=== PATIENT | male | born 1950 | race Caucasian/White ===

== ENCOUNTER 2016-05-26 09:02 | Outpatient (RCR) | payer MEDICARE, MEDICAID ==
[2014-05-07 16:05] VITALS: BP 126/62
[~2016-05-26 09:02] MED LIST: AMARYL1 MG PO; AMARYL4 MG PO; COZAAR100 MG PO; FORTAMET500 MG PO; IBUPROFEN600 MG PO; LEVEMIR100 U/M1 SC; TAMIFLU75 MG PO; TUSS PO; VIAGRA50 MG PO
== END 2016-06-23 11:38 | disposition home or self-care (01) ==
LOC: PT 09:02
DX: M79.604 Pain in right leg (principal)

== ENCOUNTER 2017-05-24 07:48 | Emergency (ER) | payer MEDICARE, MEDICAID ==
[~2017-05-24] VITALS: Ht 185.4 cm; Wt 81.8 kg
[2017-05-24] MEDS ORDERED: JANUVIA 100MG100 MG (08:19)
[2017-05-24 08:47] LABS: EOS # 0.2 (0.04-0.40); EOS % 4.7 % (0.0-4.0); HEMATOCRIT 40.1 % (42.0-52.0); HEMOGLOBIN 13.9 g/dL (13.5-18.0); LYMPH# 0.9 (1.50-4.00); MEAN CORPUSCULAR HGB CONC 35 g/dL (33-37); MEAN PLATELET VOLUME 10.5 fl (7.4-10.4); MONO # 0.4 (0.20-0.80); NEU # 3.2 (1.40-6.50); PLATELET COUNT 137 K/mm3 (130-400); RED BLOOD COUNT 3.63 M/mm3 (4.20-5.60); RED CELL DISTRIBUTION WIDTH 12.4 % (11.5-14.5); WHITE BLOOD COUNT 4.7 K/mm3 (4.8-10.8)
[2017-05-24 08:50] LABS: MEAN CELL VOLUME 111 fl (78-100); MEAN CORPUSCULAR HEMOGLOBIN 38 pg (27-31)
[2017-05-24 08:53] LABS: ALBUMIN 3.8 g/dL (3.5-5.0); BUN/CREATININE RATIO 15.1 (6.0-26.0); CALCIUM 8.5 mg/dL (8.4-10.2); POTASSIUM 4.2 mmol/L (3.6-5.0); TOTAL BILIRUBIN 0.8 mg/dL (0.2-1.3); TOTAL PROTEIN 7.7 g/dL (6.3-8.2)
[2017-05-24 09:10] LABS: URINE APPEARANCE HAZY; URINE BILIRUBIN NEGATIVE (NEGATIVE); URINE BLOOD 250 ery/uL (NEGATIVE); URINE COLOR DARK YELLOW; URINE GLUCOSE 50 mg/dL mg/dL (NEGATIVE); URINE KETONE 1+ (NEGATIVE); URINE LEUKOCYTE ESTERASE NEGATIVE (NEGATIVE); URINE MUCUS PRESENT (NOT PRESENT); URINE NITRATE NEGATIVE (NEGATIVE); URINE PROTEIN(semi-quant) TRACE mg/dL (NEGATIVE); URINE UROBILINOGEN NORMAL (NORMAL)
[2017-05-24] MEDS ORDERED: DELTASONE20 M1 PO (09:50)
[2017-05-24] MEDS ORDERED: ZITHROMAX Z PA250 MG PO (09:50)
[2017-05-24 10:23] VITALS: BP 152/78
== END 2017-05-24 09:58 | disposition home or self-care (01) ==
LOC: ED 07:48
PROVIDERS: Nurse Practitioner
DX: J40 Bronchitis, not specified as acute or chronic (principal); I10 Essential (primary) hypertension; E11.65 Type 2 diabetes mellitus with hyperglycemia; Z88.0 Allergy status to penicillin; Z88.8 Allergy status to other drugs, medicaments and biological substances; Z79.4 Long term (current) use of insulin; Z87.891 Personal history of nicotine dependence

== ENCOUNTER → 2018-10-26 | Outpatient (CLI) | payer MEDICARE, MEDICAID ==
[~2018-10-26] MED LIST changes: +DELTASONE20 M1 PO; +JANUVIA 100MG100 MG; +ZITHROMAX Z PA250 MG PO
== END ==
LOC: RAD 08:24
DX: M17.0 Bilateral primary osteoarthritis of knee (principal)

== ENCOUNTER 2019-04-28 09:31 | Emergency (ER) | payer MEDICARE, MEDICAID ==
[~2019-04-28] VITALS: Ht 185.4 cm; Wt 129.8 kg
[2019-04-28] MEDS ORDERED: LEVEMIR100 U/M1 SQ (09:41)
[2019-04-28] MEDS ORDERED: COZAAR100 MG PO (09:41)
[2019-04-28 10:35] LABS: EOS # 0.1 (0.04-0.40); EOS % 0.6 % (0.0-4.0); HEMATOCRIT 34.9 % (42.0-52.0); HEMOGLOBIN 11.6 g/dL (13.5-18.0); LYMPH# 1.3 (1.50-4.00); MEAN CORPUSCULAR HGB CONC 33 g/dL (33-37); MEAN PLATELET VOLUME 10.3 fl (7.4-10.4); MONO # 0.6 (0.20-0.80); NEU # 6.5 (1.40-6.50); PLATELET COUNT 151 K/mm3 (130-400); RED BLOOD COUNT 2.77 M/mm3 (4.20-5.60); RED CELL DISTRIBUTION WIDTH 11.8 % (11.5-14.5); WHITE BLOOD COUNT 8.5 K/mm3 (4.8-10.8)
[2019-04-28 10:43] LABS: MEAN CELL VOLUME 126 fl (78-100); MEAN CORPUSCULAR HEMOGLOBIN 42 pg (27-31)
[2019-04-28 10:54] LABS: ALBUMIN 3.5 g/dL (3.4-4.8); POTASSIUM 3.9 mmol/L (3.5-5.1); SODIUM 143 mmol/L (136-145)
[2019-04-28] MEDS ORDERED: TYLENOL EXTRA500 M2 PO (10:54)
[2019-04-28 10:55] LABS: CALCIUM 8.6 mg/dL (8.3-10.5)
[2019-04-28] MEDS ORDERED: MIRALAX17 GM PO (10:55)
[2019-04-28 10:56] LABS: GLUCOSE 107 mg/dL (75-110); TOTAL PROTEIN 6.3 g/dL (6.2-8.1)
[2019-04-28] MEDS ORDERED: REVATIO20 MG PO (10:56)
[2019-04-28 10:57] LABS: CARBON DIOXIDE 24 mmol/L (23-31)
[2019-04-28 10:58] LABS: TOTAL BILIRUBIN 0.9 mg/dL (0.2-1.2)
[2019-04-28 11:02] LABS: AST-SGOT 17 U/L (5-34)
[2019-04-28 11:03] LABS: ALT/SGPT 8 U/L (0-55)
[2019-04-28 11:52] LABS: TROPONIN-I < 0.03 ng/mL (<0.030)
[2019-04-28 12:03] LABS: URINE APPEARANCE CLOUDY; URINE BILIRUBIN NEGATIVE (NEGATIVE); URINE BLOOD TRACE (NEGATIVE); URINE COLOR YELLOW; URINE GLUCOSE NEGATIVE (NEGATIVE); URINE KETONE NEGATIVE (NEGATIVE); URINE LEUKOCYTE ESTERASE 2+ (NEGATIVE); URINE NITRATE NEGATIVE (NEGATIVE); URINE PROTEIN(semi-quant) TRACE mg/dL (NEGATIVE); URINE UROBILINOGEN NORMAL (NORMAL)
[2019-04-28 12:04] LABS: URINE MUCUS PRESENT (NOT PRESENT); URINE WBC >50 /hpf (0-3)
[2019-04-28 13:54] VITALS: BP 157/99
== END 2019-04-28 14:06 | disposition other institution (70) ==
LOC: ED 09:31
PROVIDERS: Nurse Practitioner Primary Care
DX: N39.0 Urinary tract infection, site not specified (principal); E86.0 Dehydration; M25.562 Pain in left knee; R53.1 Weakness; E11.9 Type 2 diabetes mellitus without complications; I10 Essential (primary) hypertension; M54.5 Low back pain; G89.29 Other chronic pain; F17.210 Nicotine dependence, cigarettes, uncomplicated; Z79.4 Long term (current) use of insulin
CPT/HCPCS: A4216; J0696; J7030

== ENCOUNTER 2019-04-28 14:01 | Inpatient (IN) | payer MEDICARE, MEDICAID ==
[~2019-04-28] VITALS: Ht 182.9 cm; Wt 130.4 kg
[~2019-04-28 14:01] MED LIST changes: +LEVEMIR100 U/M1 SQ; +MIRALAX17 GM PO; +REVATIO20 MG PO; +TYLENOL EXTRA500 M2 PO
[2019-04-28 14:30] VITALS: BP 157/99
[2019-04-28 14:33] VITALS: BP 157/99
[2019-04-28 18:04] VITALS: BP 162/82
[2019-04-28 22:00] VITALS: BP 160/94
[2019-04-29 01:46] VITALS: BP 137/75
[2019-04-29 05:30] VITALS: BP 126/89
[2019-04-29 07:28] LABS: POTASSIUM 4.1 mmol/L (3.5-5.1)
[2019-04-29 09:57] VITALS: BP 144/76
[2019-04-29 10:04] LABS: HEMATOCRIT 32.8 % (42.0-52.0); HEMOGLOBIN 10.9 g/dL (13.5-18.0); LYMPH# 1.2 (1.50-4.00); MEAN CORPUSCULAR HGB CONC 33 g/dL (33-37); MONO # 0.5 (0.20-0.80); NEU # 5.9 (1.40-6.50); PLATELET COUNT 143 K/mm3 (130-400); RED BLOOD COUNT 2.62 M/mm3 (4.20-5.60); RED CELL DISTRIBUTION WIDTH 11.9 % (11.5-14.5); WHITE BLOOD COUNT 7.5 K/mm3 (4.8-10.8)
[2019-04-29 10:06] LABS: MEAN CELL VOLUME 125 fl (78-100); MEAN CORPUSCULAR HEMOGLOBIN 42 pg (27-31)
[2019-04-29 13:50] VITALS: BP 165/99
[2019-04-29 18:00] VITALS: BP 128/73
[2019-04-29 21:38] VITALS: BP 109/58
[2019-04-30 02:21] VITALS: BP 137/79
[2019-04-30 06:27] VITALS: BP 155/82
[2019-04-30 10:04] VITALS: BP 162/85
[2019-04-30 13:48] VITALS: BP 161/133
[2019-04-30 18:00] VITALS: BP 156/81
[2019-04-30 21:29] VITALS: BP 110/66
[2019-05-01 01:18] VITALS: BP 161/86
[2019-05-01 05:22] VITALS: BP 168/91
[2019-05-01 06:41] LABS: HEMATOCRIT 31.8 % (42.0-52.0); HEMOGLOBIN 10.9 g/dL (13.5-18.0); MEAN CORPUSCULAR HGB CONC 34 g/dL (33-37); MEAN PLATELET VOLUME 10.3 fl (7.4-10.4); PLATELET COUNT 139 K/mm3 (130-400); RED BLOOD COUNT 2.58 M/mm3 (4.20-5.60); RED CELL DISTRIBUTION WIDTH 11.6 % (11.5-14.5); WHITE BLOOD COUNT 9.3 K/mm3 (4.8-10.8)
[2019-05-01 07:09] LABS: LYMPHOCYTE 25 % (20-51); MEAN CELL VOLUME 123 fl (78-100); MEAN CORPUSCULAR HEMOGLOBIN 42 pg (27-31); MONOCYTE 10 % (3-10); NEUTROPHILS 63 % (42-75)
[2019-05-01 07:12] LABS: URINE APPEARANCE CLEAR; URINE COLOR YELLOW
[2019-05-01 07:13] LABS: URINE BILIRUBIN NEGATIVE (NEGATIVE); URINE BLOOD NEGATIVE (NEGATIVE); URINE GLUCOSE NEGATIVE (NEGATIVE); URINE KETONE NEGATIVE (NEGATIVE); URINE LEUKOCYTE ESTERASE NEGATIVE (NEGATIVE); URINE NITRATE NEGATIVE (NEGATIVE); URINE PROTEIN(semi-quant) TRACE mg/dL (NEGATIVE); URINE UROBILINOGEN NORMAL (NORMAL)
[2019-05-01 09:52] VITALS: BP 157/99
[2019-05-01 11:55] LABS: ALBUMIN 3.2 g/dL (3.4-4.8); POTASSIUM 3.4 mmol/L (3.5-5.1); SODIUM 144 mmol/L (136-145)
[2019-05-01 11:56] LABS: CALCIUM 8.4 mg/dL (8.3-10.5)
[2019-05-01 11:57] LABS: GLUCOSE 119 mg/dL (75-110); TOTAL PROTEIN 5.5 g/dL (6.2-8.1)
[2019-05-01 11:58] LABS: CARBON DIOXIDE 25 mmol/L (23-31)
[2019-05-01 11:59] LABS: TOTAL BILIRUBIN 0.8 mg/dL (0.2-1.2)
[2019-05-01 12:03] LABS: AST-SGOT 41 U/L (5-34)
[2019-05-01 12:04] LABS: ALT/SGPT < 6 U/L (0-55)
[2019-05-01 14:00] VITALS: BP 154/114
[2019-05-01 17:40] VITALS: BP 158/100
[2019-05-01 21:17] VITALS: BP 119/69
[2019-05-02 02:04] VITALS: BP 149/85
[2019-05-02 05:38] VITALS: BP 148/95
[2019-05-02 07:36] LABS: HEMATOCRIT 31.3 % (42.0-52.0); HEMOGLOBIN 10.5 g/dL (13.5-18.0); MEAN CORPUSCULAR HGB CONC 34 g/dL (33-37); MEAN PLATELET VOLUME 10.5 fl (7.4-10.4); PLATELET COUNT 130 K/mm3 (130-400); RED BLOOD COUNT 2.51 M/mm3 (4.20-5.60); WHITE BLOOD COUNT 8.9 K/mm3 (4.8-10.8)
[2019-05-02 08:17] LABS: LYMPHOCYTE 16 % (20-51); MEAN CELL VOLUME 125 fl (78-100); MEAN CORPUSCULAR HEMOGLOBIN 42 pg (27-31); MONOCYTE 10 % (3-10); NEUTROPHILS 67 % (42-75)
[2019-05-02 08:18] LABS: OVALOCYTES 1+
[2019-05-02 09:49] VITALS: BP 156/96
[2019-05-02 14:19] VITALS: BP 132/87
[2019-05-02 18:30] VITALS: BP 120/71
== END 2019-05-02 14:21 | disposition swing bed (61) | DRG 690 ==
LOC: MED/SURG 14:01
PROVIDERS: Family Medicine; ADMIT Nurse Practitioner Primary Care
DX: N39.0 Urinary tract infection, site not specified (principal); G93.40 Encephalopathy, unspecified; G89.29 Other chronic pain; I10 Essential (primary) hypertension; M54.5 Low back pain; E11.9 Type 2 diabetes mellitus without complications; E53.8 Deficiency of other specified B group vitamins; K21.9 Gastro-esophageal reflux disease without esophagitis; D53.9 Nutritional anemia, unspecified; R53.81 Other malaise; E86.0 Dehydration; W19.XXXD Unspecified fall, subsequent encounter; M19.90 Unspecified osteoarthritis, unspecified site; Z79.4 Long term (current) use of insulin; Z87.891 Personal history of nicotine dependence; Z88.0 Allergy status to penicillin; Z91.81 History of falling
CPT/HCPCS: A4216; J0696; J1650; J1815; J3420; J7030

== ENCOUNTER 2019-05-02 14:21 | Inpatient (IN) | payer MEDICARE, MEDICAID ==
[~2019-05-02] VITALS: Ht 185.4 cm; Wt 123.1 kg
[2019-05-02 16:01] VITALS: BP 132/87
[2019-05-02 20:41] VITALS: BP 132/87
[2019-05-03 05:23] VITALS: BP 155/80
[2019-05-03 12:18] VITALS: BP 140/84
[2019-05-03 17:06] VITALS: BP 150/74
[2019-05-04 05:50] VITALS: BP 145/75
[2019-05-04 17:16] VITALS: BP 162/70
[2019-05-05 06:00] VITALS: BP 151/82
[2019-05-05 17:26] VITALS: BP 117/73
[2019-05-06 05:43] VITALS: BP 119/74
[2019-05-06 17:47] VITALS: BP 133/89
[2019-05-07 06:09] VITALS: BP 144/70
[2019-05-07 16:51] VITALS: BP 163/78
[2019-05-08 05:42] VITALS: BP 117/60
[2019-05-08 17:14] VITALS: BP 159/78
[2019-05-08 19:24] VITALS: BP 164/72
[2019-05-09 06:39] VITALS: BP 120/73
[2019-05-09 15:29] LABS: EOS # 0.3 (0.04-0.40); EOS % 3.7 % (0.0-4.0); HEMATOCRIT 33.1 % (42.0-52.0); HEMOGLOBIN 10.7 g/dL (13.5-18.0); LYMPH# 1.7 (1.50-4.00); MEAN CORPUSCULAR HGB CONC 32 g/dL (33-37); MEAN PLATELET VOLUME 10.3 fl (7.4-10.4); MONO # 0.9 (0.20-0.80); NEU # 4.2 (1.40-6.50); PLATELET COUNT 218 K/mm3 (130-400); RED BLOOD COUNT 2.63 M/mm3 (4.20-5.60); RED CELL DISTRIBUTION WIDTH 11.7 % (11.5-14.5); WHITE BLOOD COUNT 7.1 K/mm3 (4.8-10.8)
[2019-05-09 15:31] LABS: MEAN CELL VOLUME 126 fl (78-100); MEAN CORPUSCULAR HEMOGLOBIN 41 pg (27-31)
[2019-05-09 15:38] LABS: POTASSIUM 4.4 mmol/L (3.5-5.1)
[2019-05-09 15:39] LABS: CALCIUM 8.4 mg/dL (8.3-10.5)
[2019-05-09 17:44] VITALS: BP 111/69
[2019-05-10 06:02] VITALS: BP 119/67
[2019-05-10 17:26] VITALS: BP 153/69
[2019-05-11 06:29] VITALS: BP 146/73
[2019-05-11 17:35] VITALS: BP 145/74
[2019-05-12 06:04] VITALS: BP 129/67
[2019-05-12 17:09] VITALS: BP 131/73
[2019-05-13 06:21] VITALS: BP 106/61
[2019-05-13 18:53] VITALS: BP 129/73
[2019-05-14 06:04] VITALS: BP 137/75
[2019-05-14 17:00] VITALS: BP 122/63
[2019-05-15 05:57] VITALS: BP 144/80
[2019-05-15 12:00] LABS: BASO # 0.1 (0.02-0.10); EOS # 0.3 (0.04-0.40); EOS % 4.5 % (0.0-4.0); HEMOGLOBIN 11.4 g/dL (13.5-18.0); LYMPH# 1.7 (1.50-4.00); MEAN CORPUSCULAR HGB CONC 33 g/dL (33-37); MEAN PLATELET VOLUME 10.8 fl (7.4-10.4); MONO # 0.8 (0.20-0.80); NEU # 4.3 (1.40-6.50); PLATELET COUNT 236 K/mm3 (130-400); RED CELL DISTRIBUTION WIDTH 11.6 % (11.5-14.5); WHITE BLOOD COUNT 7.1 K/mm3 (4.8-10.8)
[2019-05-15 12:11] LABS: ALBUMIN 3.4 g/dL (3.4-4.8); POTASSIUM 4.3 mmol/L (3.5-5.1); SODIUM 135 mmol/L (136-145)
[2019-05-15 12:13] LABS: GLUCOSE 139 mg/dL (75-110); TOTAL PROTEIN 5.7 g/dL (6.2-8.1)
[2019-05-15 12:14] LABS: CARBON DIOXIDE 24 mmol/L (23-31)
[2019-05-15 12:15] LABS: TOTAL BILIRUBIN 0.6 mg/dL (0.2-1.2)
[2019-05-15 12:19] LABS: AST-SGOT 17 U/L (5-34)
[2019-05-15 12:21] LABS: ALT/SGPT < 6 U/L (0-55)
[2019-05-15 12:22] LABS: MEAN CELL VOLUME 121 fl (78-100); MEAN CORPUSCULAR HEMOGLOBIN 39 pg (27-31)
[2019-05-15 14:18] VITALS: BP 112/69
[2019-05-15 18:57] VITALS: BP 128/75
[2019-05-16 04:57] LABS: FOLATE (FOLIC ACID) >20.0 ng/mL (>=4.0)
[2019-05-16 05:29] VITALS: BP 152/85
[2019-05-16 18:20] VITALS: BP 102/63
[2019-05-17 05:26] VITALS: BP 120/71
[2019-05-17 17:49] VITALS: BP 114/71
[2019-05-18 05:40] VITALS: BP 122/64
[2019-05-18 17:30] VITALS: BP 123/73
[2019-05-19 06:20] VITALS: BP 110/65
[2019-05-19 12:09] LABS: VITAMIN B1 303 nmol/L (70-180)
[2019-05-19 18:11] VITALS: BP 131/76
[2019-05-20 06:26] VITALS: BP 132/77
[2019-05-20 17:38] VITALS: BP 129/73
[2019-05-21 06:12] VITALS: BP 127/72
[2019-05-21 17:46] VITALS: BP 122/76
[2019-05-22 06:18] VITALS: BP 129/67
[2019-05-22 17:20] VITALS: BP 146/95
[2019-05-23 05:43] VITALS: BP 150/77
[2019-05-23 18:19] VITALS: BP 143/75
[2019-05-24 06:04] VITALS: BP 107/66
[2019-05-24 16:39] VITALS: BP 119/66
[2019-05-25 05:58] VITALS: BP 132/73
[2019-05-25 16:27] VITALS: BP 117/70
[2019-05-26 05:40] VITALS: BP 135/77
[2019-05-26 17:42] VITALS: BP 139/82
[2019-05-27 06:18] VITALS: BP 137/82
[2019-05-27 16:14] VITALS: BP 105/66
[2019-05-28 05:51] VITALS: BP 109/59
[2019-05-28 18:00] VITALS: BP 116/71; BP 159/70
[2019-05-29 05:39] VITALS: BP 109/66
[2019-05-29 11:32] LABS: EOS # 0.2 (0.04-0.40); EOS % 2.7 % (0.0-4.0); HEMATOCRIT 39.8 % (42.0-52.0); HEMOGLOBIN 13.1 g/dL (13.5-18.0); LYMPH# 1.5 (1.50-4.00); MEAN CELL VOLUME 116 fl (78-100); MEAN CORPUSCULAR HEMOGLOBIN 38 pg (27-31); MEAN CORPUSCULAR HGB CONC 33 g/dL (33-37); MEAN PLATELET VOLUME 10.2 fl (7.4-10.4); MONO # 0.7 (0.20-0.80); NEU # 4.6 (1.40-6.50); PLATELET COUNT 232 K/mm3 (130-400); RED BLOOD COUNT 3.44 M/mm3 (4.20-5.60)
[2019-05-29 11:41] LABS: ALBUMIN 3.6 g/dL (3.4-4.8); POTASSIUM 4.1 mmol/L (3.5-5.1)
[2019-05-29 11:43] LABS: CALCIUM 9.7 mg/dL (8.3-10.5)
[2019-05-29 11:44] LABS: TOTAL PROTEIN 6.3 g/dL (6.2-8.1)
[2019-05-29 11:46] LABS: TOTAL BILIRUBIN 0.4 mg/dL (0.2-1.2)
[2019-05-29 17:15] VITALS: BP 137/76
[2019-05-30 06:00] VITALS: BP 134/71
[2019-05-30] MEDS ORDERED: VITAMIN B12 1541 TAB PO (08:49)
[2019-05-30] MEDS ORDERED: FOLIC ACID1 MG PO (08:49)
[2019-05-30] MEDS ORDERED: MULTIVIT PO (08:49)
[2019-05-30] MEDS ORDERED: LEVEMIR100 U/M1 SQ (08:50)
[2019-05-30] MEDS ORDERED: NOVOLOG FLEX100 U/ML SQ (08:51)
[2019-05-30] MEDS ORDERED: FAMOTIDINE20 MG PO (08:52)
[2019-05-30] MEDS ORDERED: ATIVAN0.5 MG PO (08:52)
[2019-05-30] MEDS ORDERED: FLOMAX0.4 MG PO (08:53)
[2019-05-30] MEDS ORDERED: BENADRYL PO (08:54)
[2019-05-30 09:01] VITALS: BP 134/71
== END 2019-05-30 09:14 | DRG 948 ==
LOC: MED/SURG 14:21
PROVIDERS: Nurse Practitioner Family; ADMIT Nurse Practitioner Primary Care
DX: R53.81 Other malaise (principal); G93.40 Encephalopathy, unspecified; N39.0 Urinary tract infection, site not specified; I10 Essential (primary) hypertension; E11.9 Type 2 diabetes mellitus without complications; D51.9 Vitamin B12 deficiency anemia, unspecified; D53.9 Nutritional anemia, unspecified; R13.10 Dysphagia, unspecified; K21.9 Gastro-esophageal reflux disease without esophagitis; Z79.4 Long term (current) use of insulin; Z88.0 Allergy status to penicillin; Z88.8 Allergy status to other drugs, medicaments and biological substances
CPT/HCPCS: A4340; J1650; J1815; J3420; J3490